=== PATIENT | female | born 1995 | race Caucasian/White ===

== ENCOUNTER 2019-10-11 07:00 | Inpatient (IN) | payer BC, OTHER ==
[2019-10-11] MEDS ORDERED: PROMETHAZINE HCL 25 MG/1 ML VIAL IVPUSH ONE (07:47)
[2019-10-11] MEDS ORDERED: BUTORPHANOL TARTRATE 1 MG/ML VIAL IVPB ONE (07:47)
[2019-10-11] MEDS: DEXTROSE 5%-LACTATED RINGERS 1,000 ML IV SCH ×2 (08:00→15:00)
[2019-10-11] MEDS ORDERED: OXYTOCIN 30 UNITS in 0.9% NS 30 UNIT/500 ML INFUS.BAG IVPB SCH (08:00)
[2019-10-11] MEDS ORDERED: AMPICILLIN - 2 GM in SODIUM CHLORIDE 100 ML IVPB ONE (08:10)
[2019-10-11] MEDS ORDERED: OXYTOCIN 30 UNITS in 0.9% NS 30 UNIT/500 ML INFUS.BAG IVPB ONE (08:33)
[2019-10-11] MEDS ORDERED: AMPICILLIN SODIUM 2 GM VIAL ONE (08:34)
[2019-10-11 08:49] LABS: BASO % 0.4 % (0-2.0); EOS % 1.3 % (0-4.5); HEMATOCRIT 37.8 % (32.4-45.2); HEMOGLOBIN 12.9 GM/dL (10.7-15.3); LYMPH % 14.5 % (8-40); MCH 30.4 pg (25.7-33.7); MCHC 34.1 g/dl (32.0-36.0); MEAN PLT VOLUME 8.7 fl (7.5-11.1); MONO % 8.9 % (3.8-10.2); NEUT % 74.9 % (42.8-82.8); PLATELET COUNT 301 K/MM3 (134-434); RBC 4.25 M/mm3 (3.60-5.2); RDW 12.7 % (11.6-15.6); RETICULOCYTES 2.48 % (0.5-1.5); WHITE BLOOD COUNT 9.8 K/mm3 (4.0-10.0)
[2019-10-11 09:05] LABS: BLOOD UREA NITROGEN 10.4 mg/dL (7-18); CALCIUM 8.9 mg/dL (8.5-10.1); CREATININE 0.5 mg/dL (0.55-1.3); POTASSIUM 3.7 mmol/L (3.5-5.1); URIC ACID 3.5 mg/dL (2.6-7.2)
[2019-10-11 09:34] LABS: INR 0.9 (0.83-1.09); PROTHROMBIN TIME (PATIENT) 10.6 SEC (9.7-13.0)
[2019-10-11 09:37] LABS: ACTIVATED PTT 26.9 SECONDS (25.2-36.5)
[2019-10-11 09:47] VITALS: BMI 34.3
[2019-10-11] MEDS ORDERED: AMPICILLIN - 1 GM in SODIUM CHLORIDE 100 ML IVPB SCH (12:10)
[2019-10-11] MEDS: AMPICILLIN - 1 GM in SODIUM CHLORIDE 100 ML IVPB SCH ×3 (12:30→20:50)
[2019-10-11] MEDS ORDERED: AMPICILLIN SODIUM 1 GM VIAL ONE ×2 (13:17→17:23)
[2019-10-11 13:21] LABS: EPI CELLS 16.4 /HPF (0-5/HPF); HYALINE CASTS 184 /lpf (0-8); PH,URINE 6.5 (5.0-8.0); URINE APPEARANCE CLOUDY; URINE BACTERIA 95.3 /hpf (NEGATIVE); URINE BILIRUBIN NEGATIVE (NEGATIVE); URINE COLOR YELLOW; URINE GLUCOSE (UA) NEGATIVE (NEGATIVE); URINE KETONE NEGATIVE (NEGATIVE); URINE LEUK ESTERASE NEGATIVE (NEGATIVE); URINE NITRITE NEGATIVE (NEGATIVE); URINE PROTEIN 2+ (NEGATIVE); URINE RBC 31 /hpf (0-4); URINE UROBILINOGEN 0.2 mg/dL (0.2-1.0); URINE WBC 2 /hpf (0-5)
--- NOTE | 2019-10-11 17:26 | CONSULT ---
Past Medical History, Laborist - Admission Chief Complaint: In labor; induced. Membranes ruptured. Good contractions. In pain. History of Present Illness: She is 40 w 0 d today. Pt is barely 5 ft tall. 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: Denies/None Cardio/Vascular: Denies/None Pulmonary: Denies/None Gastrointestinal: Denies/None Hepatobiliary: Denies/None Renal/: Denies/None Reproductive: Denies/None ...: 1 ...Para: 0 ...Term: 0 ...: 0 ...Spon : 0 ...Induced : 0 ...Multiple Gestation: 0 ...EDC by Sono: 10/11/19 Heme/Onc: Denies/None Infectious Disease: Denies/None Psych: Denies/None Musculoskeletal: Denies/None Rheumatology: Denies/None ENT: Denies/None Endocrine: Denies/None Dermatology: Denies/None - Past Surgical History Past Surgical History: Yes: None - Smoking History Smoking history: Never smoked Have you smoked in the past 12 months: No - Alcohol/Substance Use Hx Alcohol Use: No Review of Systems - Review of Systems Constitutional: reports: No Symptoms Eyes: reports: No Symptoms HENT: reports: No Symptoms Neck: reports: No Symptoms Cardiovascular: reports: No Symptoms Respiratory: reports: No Symptoms Gastrointestinal: reports: No Symptoms Genitourinary: reports: No Symptoms Breasts: reports: No Symptoms Reported Musculoskeletal: reports: No Symptoms Integumentary: reports: No Symptoms Neurological: reports: No Symptoms Endocrine: reports: No Symptoms Hematology/Lymphatic: reports: No Symptoms Psychiatric: reports: No Symptoms Physical Exam - Maternity Vital Signs: Vital Signs Temperature 98.4 F 10/11/19 14:13 Pulse Rate 80 10/11/19 15:30 Respiratory Rate 18 10/11/19 15:30 Blood Pressure 121/70 10/11/19 15:30 O2 Sat by Pulse Oximetry (%) Constitutional: Yes: Well Nourished, No Distress, Calm Eyes: Yes: WNL, Conjunctiva Clear, EOM Intact HENT: Yes: WNL, Atraumatic, Normocephalic Neck: Yes: WNL, Supple, Trachea Midline Cardiovascular: Yes: WNL, Regular Rate and Rhythm Breast(s): Yes: WNL - Abdominal Exam/OB Fundal Height: 42 Number of Fetuses: Single Presentation: Vertex Contractions: Yes Regularity: Regular Intensity: Mod/Strong Monitor Mode: External Heart Rate (range): 138 Heart Rate Location: [facility] Category: I Accelerations: Uniform Decelerations: None - Vaginal Exam/OB Vaginal Bleediing: No Speculum Exam: No Dilatation (cm): 1-2 Effacement (%): 30 Amniotic Membrane Status: Ruptured Amniotic Fluid: Yes: Clear Presentation: Vertex/Position Station: -3 - Physical Exam Musculoskeletal: Yes: WNL Extremities: Yes: WNL Integumentary: Yes: WNL ...Motor Strength: WNL Psychiatric: Yes: WNL - Labs Lab Results: CBC, BMP 10/11/19 08:34 10/11/19 08:34 Problem List - Problems (1) Post-term , 40-42 weeks of gestation Code(s): O48.0 - POST-TERM (2) Active labor at term Code(s): BJQ1676 - (3) LGA (large for gestational age) fetus Code(s): VZE6683 - Assessment/Plan Term , 40 wks, induced. GBS pos. on abx Active ctx, FH cat, 1. Large baby (EFW - 9 lbs), vx unengaged. Short maternal stature - CPD likely. Increased risk for shoulder dystocia. Observe, allow labor to continue as long as the FH is cat. 1.. Consider c/section if no progress in next 2-3 hours.
--- NOTE | 2019-10-11 19:36 | HP ---
Past Medical History - Admission Chief Complaint: macrosomia, for induction History Source: Patient Limitations to Obtaining History: No Limitations - Past Medical History FIRST ASSISTANT: No: Alzheimer's, CVA, Dementia, Migraine, Multiple Sclerosis, Peripheral Neuropathy, Parkinson's, Seizure, Syncope, TIA, Vertigo, Other Cardiovascular: No: AFIB, Aneurysm, Aortic Insufficiency, Aortic Stenosis, CAD, CHF, Deep Vein Thrombosis, HTN, Hyperlipdemia, GA, Mitral Insufficiency, Mitral Stenosis, Murmur, Pulmonary Hypertension, Other Pulmonary: No: Asthma, Bronchitis, Cancer, COPD, O2 Dependent, Pneumonia, Previously Intubated, Pulmonary Embolus, Pulmonary Fibrosis, Sleep Apnea, Other Gastrointestinal: No: Ascites, Cancer, Constipation, Crohn's Disease, Diverticulitis, Diverticulosis, Esophageal Varices, Gastritis, GERD, GI Bleed, Hemorrhoids, Hiatal Hernia, Inflamatory Bowel Disease, Irritable Bowel Disease, Pancreatitis, Peptic Ulcer Disease, Ulcerative Colitis, Other Hepatobiliary: No: Cirrhosis, Cholelithiasis, Cholecystitis, Choledocholithiasis , Hepatitis A, Hepatitis B, Hepatitis C, Other Renal/: No: Renal Failure, Renal Inusuff, BPH, Cancer, Hematuria, Hemodialysis , Neurogenic Bladder, Renal Calculi, UTI, Other ...: 1 ...Para: 0 ...Term: 0 ...: 0 ...Spon : 0 ...Induced : 0 ...Multiple Gestation: 0 ...EDC by Sono: 10/11/19 Heme/Onc: No: Anemia, B12 Deficiency, Bleeding Disorder, Cancer, Current Chemotherapy, Current Radiation Therapy, Hemochromatosis, Hypercoaguable State, Myeloproliferative Synd, Sickle Cell Disease, Sickle Cell Trait, Thrombocytopenia, Other Infectious Disease: No: AIDS, C-Diff, Herpes Zoster, HIV, MRSA, STD's, Tuberculosis, VREF, Other Psych: No: Addictions, Anxiety, Bipolar, Depression, Panic, Psychosis, Schizophrenia, Other Musculoskeletal: No: Bursitis, Chronic low back pain, Hemiparesis, Hemiplegia, Osteoarthritis, Paraplegia, Other Rheumatology: No: Fibromyalgia, Gout, Lupus, Rheumatoid Arthritis, Sarcoidosis, Vasculitis, Other ENT: No: Allergic Rhinitis, Sinusitis, Other Endocrine: No: Walton's Disease, Madhu's Disease, Diabetes Insipidus, Diabetes Mellitus, Hyperparathyroidism, Hyperthyroidism, Hypothyroidism, Osteopenia, SIADH, Other Dermatology: No: Basal Cell, Cellulitis, Eczema, Melanoma, Psoriasis, Squamous Cell, Other - Past Surgical History Past Surgical History: Yes: None. No: AAA Repair, AICD, Amputation, Appendectomy, Arthrosocopy, AV Fistula/Graft, Bariatric Surgery, Breast Biopsy, Bypass, CABG, Carotid Endarterectomy, Cataract Removal, Cholecystectomy, Colectomy, Colonoscopy, Colostomy, Craniotomy, , Cystectomy, Hernia Repair, Hysterectomy, Ileal Conduit, Ileosotomy, Joint Replacement, Kidney Transplant, Laminectomy, Liver Transplant, Mastectomy, Nephrectomy, Oopherectomy , Orchiectomy, Permanent Pacemaker, Prostatectomy, Splenectomy, Stent, Thoracotomy, TURP, Tonsillectomy, Tubal Ligation, Upper Endoscopy, Valve Replacement, Vasectomy, Vein Stripping/Ligation Hx Myomectomy: No Hx Transabdominal Cerclage: No - Advance Directives Advance Directives: Yes: Living Will - Smoking History Smoking history: Never smoked Have you smoked in the past 12 months: No - Alcohol/Substance Use Hx Alcohol Use: No History of Substance Use: reports: None - Social History Usual Living Arrangement: Yes: With Spouse Do you think of yourself as: Straight/Heterosexual ADL: Independent History of Recent Travel: No Home Medications - Allergies Allergies/Adverse Reactions: Allergies Allergy/AdvReac Type Severity Reaction Status Date / Time No Known Allergies Allergy Verified 10/11/19 07:44 - Home Medications Home Medications: Ambulatory Orders Vits96/Iron Fum/Folic [ Tablet] 1 each PO DAILY 10/11/19 Family Medical History Family History: Denies Review of Systems - Review of Systems Constitutional: reports: No Symptoms Eyes: reports: No Symptoms HENT: reports: No Symptoms Neck: reports: No Symptoms Cardiovascular: reports: No Symptoms Respiratory: reports: No Symptoms Gastrointestinal: reports: No Symptoms Genitourinary: reports: No Symptoms Breasts: reports: No Symptoms Reported Musculoskeletal: reports: No Symptoms Integumentary: reports: No Symptoms Neurological: reports: No Symptoms Endocrine: reports: No Symptoms Hematology/Lymphatic: reports: No Symptoms Psychiatric: reports: No Symptoms Physical Exam - Maternity Vital Signs: Vital Signs Temperature 97.8 F 10/11/19 18:00 Pulse Rate 70 10/11/19 18:00 Respiratory Rate 18 10/11/19 18:00 Blood Pressure 125/71 10/11/19 18:00 O2 Sat by Pulse Oximetry (%) Constitutional: Yes: Well Nourished, No Distress, Calm Eyes: Yes: WNL, Conjunctiva Clear, EOM Intact HENT: Yes: WNL, Atraumatic, Normocephalic Neck: Yes: WNL, Supple, Trachea Midline Cardiovascular: Yes: WNL, Regular Rate and Rhythm Lungs: Clear to auscultation Breast(s): Yes: WNL - Abdominal Exam/OB Fundal Height: 42 Number of Fetuses: Single Presentation: Vertex Contractions: Yes Regularity: Irregular Intensity: Mild/Mod Monitor Mode: External Heart Rate Location: [facility] Category: I Accelerations: Uniform Decelerations: None - Vaginal Exam/OB Vaginal Bleediing: No Speculum Exam: No Dilatation (cm): 1 Effacement (%): 50 Amniotic Membrane Status: Intact Amniotic Fluid: Yes: Clear Presentation: Vertex/Position Station: -3 - Physical Exam Musculoskeletal: Yes: WNL Extremities: Yes: WNL Edema: Yes Edema: LUE: 1+, RUE: 1+, LLE: 1+, RLE: 1+ Integumentary: Yes: WNL Deep Tendon Reflex Grade: Normal +2 ...Motor Strength: WNL Psychiatric: Yes: WNL, Alert, Oriented - Labs Lab Results: CBC, BMP 10/11/19 08:34 10/11/19 08:34 Hemorrhage Risk Assessment - Risk Factors Medium Risk Factors: Yes: EFW greater than 4000g Risk Score: 1 Risk Level: Medium Risk Assessment/Plan for induction efw of 9 lb,
--- NOTE | 2019-10-11 19:38 | PN ---
Progress Note (short form) - Note Progress Note: 1230 pm, cx no change, 1cm, 50%, -3, continue pitocin, considering pain medications stadol soon
--- NOTE | 2019-10-11 19:39 | PN ---
Progress Note (short form) - Note Progress Note: 7pm 1 cm, asking for pain med, cx no change, nst reactive, macrosomia, will proceed to c s ,
[2019-10-11] MEDS ORDERED: morphine SULFATE/PF 0.5 MG/ML (2cc Syringe - QUVA) ONE (19:44)
[2019-10-11] MEDS ORDERED: IBUPROFEN 600 MG TABLET (FP) PO PRN (19:47)
[2019-10-11] MEDS ORDERED: ACETAMINOPHEN 325 MG TABLET (FP) PO PRN (19:47)
[2019-10-11] MEDS ORDERED: ONDANSETRON 4 MG/2 ML VIAL IVPUSH PRN (19:47)
[2019-10-11] MEDS ORDERED: ceFAZolin SODIUM 1 GM VIAL ONE ×2 (19:50)
[2019-10-11] MEDS ORDERED: OXYTOCIN 20 UNITS in 0.9% NS 40 UNIT/2,000 ML INFUS.BAG IV ONE (21:00)
[2019-10-11] MEDS ORDERED: OXYTOCIN 10 UNITS/ML VIAL ONE ×2 (21:03)
[2019-10-11] MEDS ORDERED: SENNOSIDES/DOCUSATE COMBO (SENNA PLUS) TABLET (UD) PO PRN (21:15)
[2019-10-11] MEDS ORDERED: METHYLERGONOVINE MALEATE 0.2 MG/1 ML AMP IM PRN (21:15)
[2019-10-11] MEDS ORDERED: OXYTOCIN 20 UNITS in 0.9% NS 20 UNIT/1,000 ML INFUS.BAG IV SCH (21:15)
[2019-10-11] MEDS ORDERED: oxyCODONE HCL 5 MG TABLET PO PRN ×2 (21:15)
--- NOTE | 2019-10-11 21:21 | OP ---
Operative Note - Note: Operative Date: 10/11/19 Pre-Operative Diagnosis: f t proress, macrosomia Operation: primary lt c s Findings: same Post-Operative Diagnosis: Same as Pre-op Surgeon: Greg Figueroa Director Life: Malcolm Esposito Anesthesiologist/CRANBERRY GROWER: Los Cast Anesthesia: Spinal Estimated Blood Loss (mls): 400 (no complications ) Operative Report Dictated: Yes
[2019-10-12] MEDS: IBUPROFEN 800 MG/8 ML IJ IVPB PRN ×2 (05:29→16:31)
[2019-10-12 09:26] LABS: BASO % 0.2 % (0-2.0); EOS % 0.4 % (0-4.5); HEMATOCRIT 36.3 % (32.4-45.2); HEMOGLOBIN 12.5 GM/dL (10.7-15.3); LYMPH % 11.7 % (8-40); MCH 30.6 pg (25.7-33.7); MCHC 34.3 g/dl (32.0-36.0); MEAN CELL VOLUME 89.2 fl (80-96); MEAN PLT VOLUME 8.5 fl (7.5-11.1); NEUT % 77.7 % (42.8-82.8); PLATELET COUNT 260 K/MM3 (134-434); RBC 4.07 M/mm3 (3.60-5.2); RDW 12.7 % (11.6-15.6); WHITE BLOOD COUNT 10.5 K/mm3 (4.0-10.0)
[2019-10-12] MEDS: ENOXAPARIN NA (PORCINE) 40 MG/0.4 ML DISP.SYRIN SQ SCH (10:26)
--- NOTE | 2019-10-12 11:10 | PN ---
Progress Note (short form) - Note Progress Note: 24F s/p C/S under duramorph spinal. No new c/o. Vital Signs Period Temp Pulse Resp BP Sys/Max Pulse Ox Last 24 Hr 97.6 F-98.8 F 70-105 18-21 110-135/62-87 100-100 CBC, BMP 10/12/19 08:40 10/11/19 08:34 Intake & Output 10/11/19 10/12/19 10/12/19 23:59 07:59 15:59 Intake Total 625 1250 Output Total 700 700 Balance -75 550 Intake: IV 525 1000 D5-Lr - 1,000 ml @ 125 400 mls/hr IV ASDIR YOVANI Rx#: [id number] NORMAL SALINE+20 UNITS 125 1000 OXYTOCIN - 20 unit In 1, 000 ml @ 125 mls/hr IV ASDIR YOVANI Rx#:[id number] IVPB 100 250 Output: Urine 700 700 Ortez 700 700 Other: Voiding Method Indwelling Catheter # Unmeasured Voids Void 1 Weight 8 lb 11 oz Length 19 in - No anesthetic complications
--- NOTE | 2019-10-12 15:04 | PN ---
Post Progress Note Post Day: 1 Type of Delivery: Primary C/S Vital Signs: Vital Signs Temperature 98.7 F 10/12/19 14:28 Pulse Rate 92 H 10/12/19 14:28 Respiratory Rate 20 10/12/19 14:28 Blood Pressure 113/73 10/12/19 14:28 O2 Sat by Pulse Oximetry (%) 100 10/11/19 22:15 Breast Exam: Yes: Soft Uterus: Yes: Fundus Firm, Fundus below umbilicus Incision: Yes: Dressing dry and intact, Sutures intact Abdomen/GI: Yes: Abdomen soft, Passing flatus, Tolerating PO Lochia: Yes: Serosa Lochia, amount: Small Extremities: Yes: Calves non-tender Perineum: Yes: Intact Activity: Ambulating (oob as much as possible ) - Labs Labs: CBC WBC 10.5 K/mm3 (4.0-10.0) H 10/12/19 08:40 RBC 4.07 M/mm3 (3.60-5.2) 10/12/19 08:40 Hgb 12.5 GM/dL (10.7-15.3) 10/12/19 08:40 Hct 36.3 % (32.4-45.2) 10/12/19 08:40 MCV 89.2 fl (80-96) 10/12/19 08:40 MCH 30.6 pg (25.7-33.7) 10/12/19 08:40 MCHC 34.3 g/dl (32.0-36.0) 10/12/19 08:40 RDW 12.7 % (11.6-15.6) 10/12/19 08:40 Plt Count 260 K/MM3 (134-434) 10/12/19 08:40 MPV 8.5 fl (7.5-11.1) 10/12/19 08:40 Absolute Neuts (auto) 8.1 K/mm3 (1.5-8.0) H 10/12/19 08:40 Neutrophils % 77.7 % (42.8-82.8) 10/12/19 08:40 Lymphocytes % 11.7 % (8-40) 10/12/19 08:40 Monocytes % 10.0 % (3.8-10.2) 10/12/19 08:40 Eosinophils % 0.4 % (0-4.5) 10/12/19 08:40 Basophils % 0.2 % (0-2.0) 10/12/19 08:40 Nucleated RBC % 0 % (0-0) 10/12/19 08:40 Retic Count 2.48 % (0.5-1.5) H 10/11/19 08:34 Haptoglobin 87 mg/dL (33-278) 10/11/19 08:34
--- NOTE | 2019-10-12 18:58 | OP ---
DATE OF OPERATION: 10/11/2019 PREOPERATIVE DIAGNOSIS: Failure to progress and macrosomia. POSTOPERATIVE DIAGNOSIS: Failure to progress and macrosomia. PROCEDURE: Primary low transverse section. SURGEON: Greg Figueroa MD. STUCCO LABORER: LAN Taylor., because no available other school office assistant or doctors around to assist ANESTHESIOLOGIST: Los Cast M.D. ANESTHESIA: Spinal BLOOD LOSS: About 400 mL PATHOLOGY: Placenta. INDICATION: A 24-year-old female patient, 40 weeks , has been predicted to be macrosomia or about 9 pound baby and also in office sonogram has been persistently predicted to be 9 pounds estimated weight, and patient is a 5 feet tall and pelvis is very small. The patient was, because of the large size baby and due day of the , so patient was requested to be induced, because did not want to take a chance of a larger baby, and wants to have a good chance of delivering vaginally, so patient came into the hospital for induction process. So patient came in in the morning, at 7 o'clock in the morning, and patient had artificial rupture of membrane around 8 or 8:30, 9 o'clock, and patient group B strep positive. Patient received antibiotics prophylaxis, and patient received 3 doses of antibiotics. Patient was 1 cm, 50%, -3, as of this morning, and then patient progressed throughout the day with the Pitocin. However was checked around 2 o'clock, still 1 cm, and 5 o'clock still about 1 cm, until about 7 o'clock still about 1 cm cervical dilatation, so patient requested pain medication and patient is in labor pain. So risks, benefits, alternatives explained to the patient. Patient did not make any progress, and patient was expecting a 9-pound baby, and the risks and benefits of vaginal delivery and were explained to the patient, and the patient understood, and the patient chose to have a to prevent a shoulder dystocia. At this time, patient also in a lot of pain and there is no other assistance available in the labor and delivery, so PA was called in for , and the patient was taken to the OR for the primary low transverse section. DESCRIPTION OF PROCEDURE: Patient was placed on operating table in supine position after spinal anesthesia was obtained. The patient's abdomen and pelvis were prepped and draped in the usual sterile manner. Pfannenstiel incision was made. The incision was made through skin, subcutaneous tissue, until the fascia was nicked in the midline. The fascia was extended bilaterally. Intraperitoneal cavity was entered, bladder flap was not created. Low transverse section of uterus was entered, baby delivered from LOT position. Baby was handed over to the accounting clerks supervisor after umbilical cord was doubly clamped and cut. Cord blood gas was obtained. Placenta was removed. Uterus was closed in single layer, 1st layer interlocking Vicryl suture, good hemostasis, and both gutters clean. Both ovaries, fallopian tubes, uterus were within normal limits, no complications. Draining clear urine. Blood loss about 400 mL. Bladder flap was closed. Peritoneum was closed. Fascia was closed. Skin was closed. Transferred to recovery room in stable condition. MD JONNY TAPIA/[id number]
[2019-10-12] MEDS ORDERED: BISACODYL 10 MG SUPP.RECT RC PRN (21:15)
[2019-10-13] MEDS ORDERED: FLU VACC QS2019-20(6MOS UP)/PF 60 MCG/0.5 ML SYRINGE IM ONE (09:45)
[2019-10-13] MEDS: ACETAMINOPHEN 325 MG TABLET (FP) PO PRN ×3 (09:52→23:45)
[2019-10-13] MEDS: IBUPROFEN 600 MG TABLET (FP) PO PRN ×3 (09:52→23:44)
[2019-10-13] MEDS: SIMETHICONE 80 MG TAB.CHEW (FP) PO PRN ×2 (09:53→17:31)
[2019-10-13] MEDS: ENOXAPARIN NA (PORCINE) 40 MG/0.4 ML DISP.SYRIN SQ SCH (09:56)
[2019-10-13] MEDS ORDERED: DIPHTH,PERTUSS(ACELL),TET 0.5 ML DISP.SYRIN IM ONE (10:00)
[2019-10-13] MEDS ORDERED: FLU VACCINE QUAD 60 MCG/0.5 ML (MDV 19-20) IM ONE (10:00)
--- NOTE | 2019-10-13 17:44 | PN ---
Post Progress Note Post Day: 3 Type of Delivery: Primary C/S Vital Signs: Vital Signs Temperature 97.7 F 10/13/19 09:00 Pulse Rate 96 H 10/13/19 09:00 Respiratory Rate 20 10/13/19 09:00 Blood Pressure 134/74 10/13/19 09:00 O2 Sat by Pulse Oximetry (%) 100 10/11/19 22:15 Breast Exam: Yes: Soft Uterus: Yes: Fundus Firm, Fundus below umbilicus Incision: Yes: Dressing dry and intact, Sutures intact Abdomen/GI: Yes: Abdomen soft, Passing flatus, Tolerating PO Lochia: Yes: Serosa Lochia, amount: Small Extremities: Yes: Calves non-tender Perineum: Yes: Intact Activity: Ambulating (dc pt home tomorrow ) - Labs Labs: CBC WBC 10.5 K/mm3 (4.0-10.0) H 10/12/19 08:40 RBC 4.07 M/mm3 (3.60-5.2) 10/12/19 08:40 Hgb 12.5 GM/dL (10.7-15.3) 10/12/19 08:40 Hct 36.3 % (32.4-45.2) 10/12/19 08:40 MCV 89.2 fl (80-96) 10/12/19 08:40 MCH 30.6 pg (25.7-33.7) 10/12/19 08:40 MCHC 34.3 g/dl (32.0-36.0) 10/12/19 08:40 RDW 12.7 % (11.6-15.6) 10/12/19 08:40 Plt Count 260 K/MM3 (134-434) 10/12/19 08:40 MPV 8.5 fl (7.5-11.1) 10/12/19 08:40 Absolute Neuts (auto) 8.1 K/mm3 (1.5-8.0) H 10/12/19 08:40 Neutrophils % 77.7 % (42.8-82.8) 10/12/19 08:40 Lymphocytes % 11.7 % (8-40) 10/12/19 08:40 Monocytes % 10.0 % (3.8-10.2) 10/12/19 08:40 Eosinophils % 0.4 % (0-4.5) 10/12/19 08:40 Basophils % 0.2 % (0-2.0) 10/12/19 08:40 Nucleated RBC % 0 % (0-0) 10/12/19 08:40 Retic Count 2.48 % (0.5-1.5) H 10/11/19 08:34 Haptoglobin 87 mg/dL (33-278) 10/11/19 08:34
[2019-10-13 21:25] VITALS: PULSE 77
[2019-10-14] MEDS: IBUPROFEN 600 MG TABLET (FP) PO PRN (08:21)
[2019-10-14] MEDS: SIMETHICONE 80 MG TAB.CHEW (FP) PO PRN (08:21)
[2019-10-14] MEDS: ACETAMINOPHEN 325 MG TABLET (FP) PO PRN (08:22)
--- NOTE | 2019-10-14 10:02 | PN ---
Post Progress Note Post Day: 3 Type of Delivery: Primary C/S Vital Signs: Vital Signs Temperature 98.5 F 10/13/19 21:22 Pulse Rate 77 10/13/19 21:22 Respiratory Rate 20 10/13/19 21:22 Blood Pressure 125/84 10/13/19 21:22 O2 Sat by Pulse Oximetry (%) 100 10/11/19 22:15 Breast Exam: Yes: Soft Uterus: Yes: Fundus Firm, Fundus below umbilicus Incision: Yes: Dressing dry and intact, Sutures intact Abdomen/GI: Yes: Abdomen soft, Passing flatus, Tolerating PO Lochia: Yes: Serosa Lochia, amount: Small Extremities: Yes: Calves non-tender Perineum: Yes: Intact Activity: Ambulating (dc pt home today ) - Labs Labs: CBC WBC 10.5 K/mm3 (4.0-10.0) H 10/12/19 08:40 RBC 4.07 M/mm3 (3.60-5.2) 10/12/19 08:40 Hgb 12.5 GM/dL (10.7-15.3) 10/12/19 08:40 Hct 36.3 % (32.4-45.2) 10/12/19 08:40 MCV 89.2 fl (80-96) 10/12/19 08:40 MCH 30.6 pg (25.7-33.7) 10/12/19 08:40 MCHC 34.3 g/dl (32.0-36.0) 10/12/19 08:40 RDW 12.7 % (11.6-15.6) 10/12/19 08:40 Plt Count 260 K/MM3 (134-434) 10/12/19 08:40 MPV 8.5 fl (7.5-11.1) 10/12/19 08:40 Absolute Neuts (auto) 8.1 K/mm3 (1.5-8.0) H 10/12/19 08:40 Neutrophils % 77.7 % (42.8-82.8) 10/12/19 08:40 Lymphocytes % 11.7 % (8-40) 10/12/19 08:40 Monocytes % 10.0 % (3.8-10.2) 10/12/19 08:40 Eosinophils % 0.4 % (0-4.5) 10/12/19 08:40 Basophils % 0.2 % (0-2.0) 10/12/19 08:40 Nucleated RBC % 0 % (0-0) 10/12/19 08:40 Retic Count 2.48 % (0.5-1.5) H 10/11/19 08:34 Haptoglobin 87 mg/dL (33-278) 10/11/19 08:34
--- NOTE | 2019-10-14 10:07 | DS ---
Physical Exam-COMMERCIAL INTERN Vital Signs: Vital Signs Temperature 98.5 F 10/13/19 21:22 Pulse Rate 77 10/13/19 21:22 Respiratory Rate 20 10/13/19 21:22 Blood Pressure 125/84 10/13/19 21:22 O2 Sat by Pulse Oximetry (%) 100 10/11/19 22:15 Constitutional: Yes: Well Nourished, No Distress, Calm Eyes: Yes: WNL, Conjunctiva Clear, EOM Intact HENT: Yes: WNL, Atraumatic, Normocephalic Neck: Yes: WNL, Supple, Trachea Midline Cardiovascular: Yes: WNL, Regular Rate and Rhythm Respiratory: Yes: WNL, Regular, CTA Bilaterally Gastrointestinal: Yes: WNL, Normal Bowel Sounds, Soft ...Rectal Exam: Yes: WNL Renal/: Yes: WNL Pelvis: Yes: WNL External Genitalia: Yes: Normal Internal Exam Deferred: Yes Vaginal Exam: Yes: Normal Cervix: Yes: Normal Uterus: Yes: Normal Adnexa: Normal: Bilateral ....Post : Yes: Uterus firm, Uterus non-tender Breast(s): Yes: WNL Musculoskeletal: Yes: WNL Extremities: Yes: WNL Edema: Yes Edema: LUE: 1+, RUE: 1+, LLE: 1+, RLE: 1+ Integumentary: Yes: WNL Wound/Incision: Yes: Clean/Dry, Well Approximated Neurological: Yes: WNL, Alert, Oriented ...Motor Strength: WNL Psychiatric: Yes: WNL, Alert, Oriented Labs: CBC, BMP 10/12/19 08:40 10/11/19 08:34 Delivery - Delivery Section: Primary Type of Anesthesia: Spinal Episiotomy/Laceration: None EBL (cc): 400 Delivery, Single - Stages of Labor Date 1st Stage Initiatied: 10/11/19 Time 1st Stage Initiated: 11:00 Date of Delivery: 10/11/19 Time of Delivery: 20:23 Time Placenta Delivered: 20:24 Placenta: Yes: Spontaneous - Condition of Supervisor Riprap Placing/Java Developer With Security Clearance Present: Yes Name: Priscilla Perez Gender: Female Weight: 3.941 kg Position: Left, OA Total Hours ROM (Hrs/Mins): 10hrs 19min - 1 Minute Total Score: 9 5 Minutes Total Score: 9 - Feeding Plan Initial Plan: Elected not to breastfeed exclusively throughout hospitalization Discharge Summary Problems reviewed: Yes Reason For Visit: INDUCTION OF LABOR Current Active Problems Active labor at term (Acute) LGA (large for gestational age) fetus (Acute) Post-term , 40-42 weeks of gestation (Acute) Procedures: Principal: primary lt c s Other Procedures: none Hospital Course: uneventful Health Concerns: none Plan of Treatment: oob as much as possible Goals: return to work in 8 weeks Condition: Good - Instructions Diet, Activity, Other Instructions: regular, Physical activity Resume your normal everyday activity as tolerated no heavy lifting or exercise until seen by your surgeon. You may walk unlimited vaibhav of and climb stairs. You may resume driving the car when you feel safe and comfortable behind the wheel. No sexual activity as instructed. Wound care If you have a bandage, leave it on, and keep dry for 48-72 hours. After that time discard the outer bandage. If they are tapes on the skin under the out of bandage leave them in place. They will peel off in the next 7 to 10 days. Do Not Peel them off. You may shower the day after surgery. If there are tapes present on the skin, you may shower over them. Diet There are no dietary restrictions. Eat healthy, high-fiber foods. Drink 6 to 8 glasses of liquid each day. This will assist in keeping your bowels are regular. Pain management You may take Tylenol or acetaminophen or Ibuprofen (for example, Motrin, Advil etc.) from my pain prescription medication is ordered should be taken as prescribed for moderate to severe pain. Call MD for any of the following: Severe pain not relieved by medication Fever of 101 or higher Excessive bleeding or drainage on dressing Inability to urinate Disposition: HOME - Home Medications Comprehensive Discharge Medication List: Ambulatory Orders Vits96/Iron Fum/Folic [ Tablet] 1 each PO DAILY 10/11/19 Prescription Drug Monitoring Program (I-STOP) results: I-STOP reviewed and no issues identified
[2019-10-14] MEDS: ENOXAPARIN NA (PORCINE) 40 MG/0.4 ML DISP.SYRIN SQ SCH (10:09)
[2019-10-14 13:17] VITALS: BP 129/78; TEMP 97.8
--- NOTE | 2019-10-19 14:48 | PATH ---
Surgical Pathology Report Patient Name: KAREEM CHAVEZ Med. Rec. #: [id number] /Age/Gender: 1995 (Age: 24) / F Account: [id number] Location: [facility] OBS/RESTAURANT CASHIER Taken: 10/11/2019 Received: 10/12/2019 Reported: 10/19/2019 Physicians: Greg Figueroa MD Specimen(s) Received PLACENTA Clinical History , 40 weeks, failure to dilate, macrosomia Final Diagnosis PLACENTA: THIRD TRIMESTER PLACENTA. TRIVASCULAR CORD. MEMBRANES WITH NO DIAGNOSTIC ABNORMALITIES. Electronically Signed Rj Middleton M.D. Gross Description The specimen is received fresh labeled placenta and is a 490 gram, 19.5 x 15.0 x 2.3 cm. placenta with attached membranes and umbilical cord. The attached membranes are sousa, translucent with focal opacities and insert marginally. The umbilical cord measures 18 cm. in length and averages 1.1 cm. in diameter. The cord inserts eccentrically, 5.5 cm. to the nearest margin. No true knots or strictures are identified. Cut surface of the umbilical cord reveals 3 vessels. The surface is henriquez-blue with minimal fibrin deposition and appropriate caliber vessels. The maternal surface is red-brown with focal defects. Sectioning reveals red-brown, spongy parenchyma. No lesions are identified. Insights Manager sections are submitted in three cassettes as follows: 1- membrane rolls and umbilical cord; 2-3- full thickness sections of placenta. /[facility]10[facility]
== END 2019-10-14 13:05 | disposition home or self-care (01) | DRG 788 ==
LOC: JLDR 07:00 → J3W 23:02
PROVIDERS: ADMIT Obstetrics & Gynecology; ATTEND Obstetrics & Gynecology
PROC: 10D00Z1 Extraction of Products of Conception, Low, Open Approach (ICD-10-PCS; principal; 2019-10-11)
DX: O48.0 Post-term pregnancy (principal); O99.824 Streptococcus B carrier state complicating childbirth; O62.0 Primary inadequate contractions; O36.63X0 Maternal care for excessive fetal growth, third trimester, not applicable or unspecified; Z37.0 Single live birth; Z3A.40 40 weeks gestation of pregnancy
CPT/HCPCS: 36415; 80048; 81003; 82977; 83010; 84450; 84460; 84550; 85025; 85044; 85610; 85730; 86593; 86850; 86900; 86901; 88307-TC; 90686; 90715; G0008

== ENCOUNTER 2021-06-25 05:55 | Inpatient (IN) | payer OTHER ==
[2021-06-25 06:44] VITALS: BMI 35.3
[2021-06-25] MEDS ORDERED: morphine SULFATE/PF 0.5 MG/ML (2cc Syringe - QUVA) ONE (07:48)
[2021-06-25] MEDS ORDERED: ceFAZolin SODIUM 1 GM VIAL ONE (07:49)
[2021-06-25] MEDS ORDERED: KETOROLAC TROMETHAMINE 30 MG/1 ML VIAL ONE (07:49)
[2021-06-25] MEDS ORDERED: ONDANSETRON 4 MG/2 ML VIAL ONE (07:49)
[2021-06-25] MEDS ORDERED: OXYTOCIN 10 UNIT/ML 10ML MDV ONE (07:49)
[2021-06-25] MEDS ORDERED: SODIUM CHLORIDE 0.9% P/F 10 ML VIAL IJ ONE (07:58)
[2021-06-25] MEDS ORDERED: PHENYLEPHRINE HCL 10 MG/1 ML SINGLE DOSE VIAL ONE (08:07)
[2021-06-25] MEDS ORDERED: CITRIC ACID/SODIUM CITRATE 30 ML UNIT-DOSE CUP PO ONE (08:08)
[2021-06-25] MEDS ORDERED: ELECTROLYTE-148 SOLN 500 ML IV ONE (09:09)
[2021-06-25] MEDS ORDERED: SENNOSIDES/DOCUSATE COMBO (SENNA PLUS) TABLET (UD) PO PRN (09:10)
[2021-06-25] MEDS ORDERED: METHYLERGONOVINE MALEATE 0.2 MG/1 ML AMP IM PRN (09:10)
[2021-06-25] MEDS ORDERED: oxyCODONE HCL 5 MG TABLET PO PRN ×2 (09:10)
[2021-06-25] MEDS ORDERED: IBUPROFEN 800 MG/8 ML IJ IVPB PRN (09:10)
[2021-06-25] MEDS ORDERED: ACETAMINOPHEN 325 MG TABLET (FP) PO PRN (09:10)
[2021-06-25] MEDS ORDERED: ELECTROLYTE-148 SOLN 1,000 ML IV SCH (09:15)
[2021-06-25] MEDS ORDERED: ONDANSETRON 4 MG/2 ML VIAL IVPUSH PRN (09:29)
[2021-06-25] MEDS ORDERED: ACETAMINOPHEN 1000 MG/100 ML VIAL (NON FORMULARY) IVPB ONE (09:30)
[2021-06-25] MEDS ORDERED: OXYTOCIN 20 UNITS in 0.9% NS 20 UNIT/1,000 ML INFUS.BAG IV ONE (09:36)
[2021-06-25] MEDS: OXYTOCIN 20 UNITS in 0.9% NS 20 UNIT/1,000 ML INFUS.BAG IV SCH (10:15)
[2021-06-25] MEDS: PRENATAL VITAMINS W/ FOLIC ACID TABLET (FP) PO SCH (11:54)
[2021-06-25 19:12] LABS: HIV INTERPRETATION NEGATIVE (NEGATIVE)
[2021-06-26] MEDS: IBUPROFEN 600 MG TABLET (FP) PO PRN ×2 (05:43→16:58)
[2021-06-26 08:24] LABS: BASO % 0.2 % (0-2.0); EOS % 0.2 % (0-4.5); HEMATOCRIT 29.5 % (32.4-45.2); HEMOGLOBIN 9.9 GM/dL (10.7-15.3); LYMPH % 11.2 % (8-40); MCH 25.9 pg (25.7-33.7); MCHC 33.4 g/dl (32.0-36.0); MEAN CELL VOLUME 77.4 fl (80-96); MONO % 6.9 % (3.8-10.2); NEUT % 81.5 % (42.8-82.8); PLATELET COUNT 266 10^3/uL (134-434); RBC 3.81 M/mm3 (3.60-5.2); RDW 15.7 % (11.6-15.6); WHITE BLOOD COUNT 9.4 K/mm3 (4.0-10.0)
[2021-06-26] MEDS ORDERED: BISACODYL 10 MG SUPP.RECT RC PRN (09:10)
[2021-06-26] MEDS: OXYTOCIN 20 UNITS in 0.9% NS 20 UNIT/1,000 ML INFUS.BAG IV SCH (09:15)
[2021-06-26] MEDS: PRENATAL VITAMINS W/ FOLIC ACID TABLET (FP) PO SCH (09:19)
[2021-06-26] MEDS: SIMETHICONE 80 MG TAB.CHEW (FP) PO PRN (16:58)
[2021-06-27] MEDS: IBUPROFEN 600 MG TABLET (FP) PO PRN (02:05)
[2021-06-27] MEDS: PRENATAL VITAMINS W/ FOLIC ACID TABLET (FP) PO SCH (09:11)
[2021-06-27] MEDS: SIMETHICONE 80 MG TAB.CHEW (FP) PO PRN (09:20)
[2021-06-27 10:02] VITALS: BP 131/67; PULSE 93; TEMP 98.5
== END 2021-06-27 14:15 | disposition home or self-care (01) | DRG 540 ==
LOC: JLDR 05:55 → J3W 10:15
PROVIDERS: ADMIT Obstetrics & Gynecology; ATTEND Obstetrics & Gynecology
PROC: 10D00Z1 Extraction of Products of Conception, Low, Open Approach (ICD-10-PCS; principal; 2021-06-25)
DX: O36.63X0 Maternal care for excessive fetal growth, third trimester, not applicable or unspecified (principal); O34.211 Maternal care for low transverse scar from previous cesarean delivery; Z3A.39 39 weeks gestation of pregnancy; Z37.0 Single live birth
CPT/HCPCS: 36415; 85025; 87389; J0131